=== PATIENT | male | born 1975 | race Caucasian/White ===

== ENCOUNTER 2021-02-27 13:29 | Emergency (ER) | payer BC ==
[~2021-02-27 13:29] MED LIST: BACTRIM DS TAB1 EACH PO; MULTI VITAMIN PO; NORCO 7.5-3251 EACH PO; PRILOSEC OTC20 MG PO
[2021-02-27 14:01] LABS: HEMOGLOBIN 16.3 gm/dl (14.0-17.5); RED BLOOD COUNT 4.88 M/UL (4.20-5.50); WHITE BLOOD COUNT 6.6 K/UL (4.5-11.0)
[2021-02-27] MEDS ORDERED: HYDROCHLOROTHIA25 MG PO ×2 (14:28→14:44)
== END 2021-02-27 14:45 | disposition home or self-care (01) ==
LOC: ER1 13:29
PROVIDERS: Emergency Medicine
DX: I10 Essential (primary) hypertension (principal); N28.9 Disorder of kidney and ureter, unspecified; F17.210 Nicotine dependence, cigarettes, uncomplicated
CPT/HCPCS: 80048; 82550; 82553; 84484; 85025; 93005; 99283